=== PATIENT | female | born 1940 | race Caucasian/White ===

== ENCOUNTER → 2016-11-10 | Outpatient (CLI) | payer OTHER | LOC: FIMAGING 07:41 | PROVIDERS: ATTEND Internal Medicine | DX: Z12.31 Encounter for screening mammogram for malignant neoplasm of breast (principal) | CPT/HCPCS: G0202 ==

== ENCOUNTER → 2016-11-27 | Outpatient (CLI) | payer OTHER | LOC: FIMAGING 07:35 | PROVIDERS: ATTEND Internal Medicine Gastroenterology | DX: K70.30 Alcoholic cirrhosis of liver without ascites (principal) ==

== ENCOUNTER 2017-06-15 07:50 | Inpatient (IN) | payer OTHER ==
[~2017-06-15 07:50] MED LIST: BUPI/epINEPH/KETOROLAC IU ONE; POVIDONE-IODINE 20 ML in SODIUM CL IRRIG SOLUTION 500 ML IRR ONE; ROPIVACAINE 0.2% 80 MG, EPINEPHrine 0.2 MG, KETOROLAC TROMETHAMINE 30 MG in SYRINGE 0 ML IU ONE; TRANEXAMIC ACID 1,000 MG in NS (SYRINGE) 50 ML IV ONE; VANCOMYCIN 1 GM in NS 250 ML IV ONE; VANCOMYCIN PHARMACY TO DOSE MISC ONE
[2017-06-15] MEDS ORDERED: ceFAZolin 1 GM/5 ML SYR ONE ×2 (07:52→09:00)
[2017-06-15] MEDS ORDERED: ACETAMINOPHEN 325 MG TAB PO ONE (07:56)
[2017-06-15] MEDS ORDERED: GABAPENTIN 300 MG CAP PO ONE (07:56)
[2017-06-15] MEDS ORDERED: DEXAMETHASONE 4 MG/ML VIAL IVP ONE (07:56)
[2017-06-15] MEDS ORDERED: FAMOTIDINE 20 MG TAB PO ONE (07:56)
[2017-06-15] MEDS ORDERED: ONDANSETRON 4 MG/2 ML VIAL IVP ONE (07:56)
[2017-06-15] MEDS ORDERED: LR 1,000 ML IV ONE (07:58)
[2017-06-15] MEDS ORDERED: LIDOCAINE 1% 2 ML INJ ID PRN (07:58)
--- NOTE | 2017-06-15 08:30 | PDANEPAE ---
ANE History of Present Illness right SLIM ANE Past Medical History - Cardiovascular History Hx Hypertension: No Hx Arrhythmias: No Hx Chest Pain: No Hx Coronary Artery / Peripheral Vascular Disease: No Hx CHF / Valvular Disease: No Hx Palpitations: No - Pulmonary History Hx COPD: No Hx Asthma/Reactive Airway Disease: No Hx Recent Upper Respiratory Infection: No Hx Oxygen in Use at Home: No Hx Sleep Apnea: No Sleep Apnea Screening Result - Last Documented: Negative - Neurologic History Hx Cerebrovascular Accident: No Hx Seizures: No Hx Dementia: No - Endocrine History Hx Diabetes: No Endocrine History Comment: hypothyroid - Renal History Hx Renal Disorders: No - Liver History Hx Hepatic Disorders: Yes Hepatic History Comment: cirrhosis. Dr Barbour orders. spironolactone for improved liver function - Neurological & Psychiatric Hx Hx Neurological and Psychiatric Disorders: No - Cancer History Hx Cancer: Yes Cancer History Comment: basal cell carcinoma removed from [place] - Congenital Disorder History Hx Congenital Disorders: No - GI History Hx Gastrointestinal Disorders: Yes Gastrointestinal History Comment: constipation - Other Health History Other Health History: catarcts. thin delicate skin bruises easily. bilat upper arm lymphodema NO BP's - Chronic Pain History Chronic Pain: No - Surgical History Prior Surgeries: hernia repair with mesh ANE Review of Systems Review of Systems: - Exercise capacity METS (RN): 4 METS ANE Patient History - Allergies Allergies/Adverse Reactions: Penicillins Allergy (Severe, Verified 05/27/17 10:36) Rash tramadol Allergy (Intermediate, Verified 05/27/17 10:36) NAUSEA & VOMITING - Home Medications Home medications: home medication list seen and reviewed Home Medications: Ascorbic Acid [Vitamin C 500 mg (*)] 05/25/17 [Last Taken 06/08/17] Atorvastatin Calcium [Lipitor 20 mg (*)] 05/25/17 [Last Taken 06/13/17] Cholecalciferol Vit D3 [Vitamin D3 (*)] 05/25/17 [Last Taken 06/08/17] Herbals/Supplements -Info Only 05/25/17 [Last Taken 06/08/17] Levothyroxine [Synthroid 88 mcg (*)] 05/25/17 [Last Taken 06/13/17] [place]-3 Fatty Acids [Fish Oil 1000 mg (*)] 05/25/17 [Last Taken 06/08/17] Polyethylene Glycol 3350 [Miralax 17 gm (*)] 05/25/17 [Last Taken 06/13/17] Spironolactone [Aldactone 25 MG (*)] 05/25/17 [Last Taken 06/13/17] - Smoking Hx Smoking Status: Never smoked - Family Anes Hx Family Hx Anesthesia Complications: 2 grand fathers post anesthesia. unkown reasons ANE Labs/Vital Signs - Vital Signs Height: 160.02 cm Weight: 66.224 kg ANE Physical Exam - Airway Neck exam: FROM Mallampati Score: Class 2 Mouth exam: normal dental/mouth exam - Pulmonary Pulmonary: no respiratory distress - Cardiovascular Cardiovascular: regular rate and rhythym - ASA Status ASA Status: III ANE Anesthesia Plan Anesthesia Plan: spinal Urgent/Emergent Case: Marques ramirez completed preop but documented later for safe timely pt care
--- NOTE | 2017-06-15 08:42 | PDHPUP ---
History & Physical Update H&P update statement: This history and physical update is based on an assessment of the patient which was completed after admission or registration (within 24 hours), but prior to the surgery/procedure. H&P update: H&P reviewed & patient examined
[2017-06-15] MEDS ORDERED: LIDOCAINE 2% 5 ML SDV ONE (09:11)
[2017-06-15] MEDS ORDERED: PROPOFOL 200 MG/20 ML VIAL ONE ×3 (09:11→09:15)
[2017-06-15] MEDS ORDERED: fentaNYL 100 MCG/2 ML INJ ONE (10:06)
[2017-06-15] MEDS ORDERED: HYDROmorphONE/DILAUDID 2 MG/ML INJ ONE (10:07)
[2017-06-15] MEDS ORDERED: ONDANSETRON 4 MG/2 ML VIAL ONE (10:15)
[2017-06-15] MEDS ORDERED: DEXAMETHASONE 4 MG/ML VIAL ONE (10:15)
--- NOTE | 2017-06-15 10:25 | POSTANESTH ---
Post Anesthetic Evaluation Cardiovascular Status: Normal, Stable Respiratory Status: Normal, Stable Level of Consciousness/Mental Status: Can Participate in Eval Pain Control: Adequate, Prn Tx Ordered Nausea/Vomiting Control: Adequate, Prn Tx Ordered Complications Possibly Related to Anesthesia: None Noted
--- NOTE | 2017-06-15 11:03 | POSTOPPROG ---
Post Op Note Date of Operation: 06/15/17 Surgeon: Gary Rojas Quenching Car Operator: Melvin Anesthesiologist: Eileen Anesthesia: IV Sedation, Spinal Post-op Diagnosis: Right hip severe degenerative arthritis Procedure: Right total hip arthroplasty Inf/Abcess present in the surg proc area at time of surgery?: No EBL: 100-500
[2017-06-15] MEDS ORDERED: POLYETHYLENE GLYCOL 3350 17 GM PKT PO PRN (11:16)
[2017-06-15] MEDS ORDERED: PROMETHAZINE HCL 25 MG SUPPR PR PRN (11:16)
[2017-06-15] MEDS ORDERED: HYDROCODONE/APAP 5/325 TAB PO PRN ×2 (11:16→12:15)
[2017-06-15] MEDS ORDERED: ONDANSETRON DISINTEGRATING 4 MG TAB PO PRN (11:16)
[2017-06-15] MEDS ORDERED: CYCLOBENZAPRINE 10 MG TAB PO PRN (11:16)
[2017-06-15] MEDS ORDERED: DIPHENOXYLATE/ATROPINE LOMOTIL 1 TAB PO PRN (11:16)
[2017-06-15] MEDS ORDERED: ONDANSETRON 4 MG/2 ML VIAL IVP PRN ×2 (11:16→12:15)
[2017-06-15] MEDS ORDERED: METOCLOPRAMIDE 10 MG/2 ML VIAL IVP PRN (11:16)
[2017-06-15] MEDS ORDERED: MAGNESIUM HYDROXIDE 30 ML UDCUP PO PRN (11:16)
[2017-06-15] MEDS ORDERED: PROMETHAZINE HCL 25 MG/ML INJ IVP PRN ×2 (11:16→12:15)
[2017-06-15] MEDS ORDERED: diphenhydrAMINE 25 MG CAP PO PRN (11:16)
[2017-06-15] MEDS ORDERED: LACTULOSE 20 GM/30 ML UDCUP PO PRN (11:16)
[2017-06-15] MEDS ORDERED: TEMAZEPAM 15 MG CAP PO PRN (11:16)
[2017-06-15] MEDS ORDERED: BISACODYL 10 MG SUPP PR PRN (11:16)
[2017-06-15] MEDS ORDERED: KETOROLAC 30 MG/1 ML SDV IVP PRN (11:16)
[2017-06-15] MEDS ORDERED: NS 500 ML IV PRN (11:16)
[2017-06-15] MEDS ORDERED: LR 1,000 ML IV SCH (11:30)
--- NOTE | 2017-06-15 11:49 | GOP ---
[f rep st] OPERATIVE REPORT DATE OF OPERATION: 06/15/2017 SURGEON: Gary Rojas MD FRAME TENDER: ZONIA Natarajan CFA. ANESTHESIA: A combination of Marcaine, spinal, IV sedation, and light general anesthesia. ANESTHESIOLOGIST: Dr. Nilton Arellano. PREOPERATIVE DIAGNOSIS: Right hip severe degenerative arthritis. POSTOPERATIVE DIAGNOSIS: Right hip severe degenerative arthritis. PROCEDURE PERFORMED: 06/15/2017, right total hip arthroplasty, cobalt chrome femoral head on highly cross-linked polyethylene cup liner. FINDINGS: ESTIMATED BLOOD LOSS: 400 mL. The sponge and needle count were correct on 2 occasions. DESCRIPTION OF PROCEDURE: The patient was given 1 g of IV vancomycin preoperatively within 60 minute s of surgery. She also received IV tranexamic acid at a dose of 1000 mg. She was placed on the oper ating room table and given spinal anesthesia with Marcaine by Dr. Arellano. She was then placed supi ne and given IV sedation. A Proctor catheter was not used. She wore a SOTERO stocking on the nonoperativ e leg. Because she has lymphedema in both upper extremities, the blood pressure cuff was placed on h er left calf. I could not use an SCD on the left leg. She was rolled to the left lateral decubitus position. The position was secured with the pegboard table attachment. An axillary roll was used, a nd all pressure points were carefully padded. She has bilateral total shoulder arthroplasties. I wa s very careful in positioning her and padding her shoulders. I was careful to lock her pelvis in a r igid vertical position. Her perineum was isolated with plastic adhesive drapes. Her right hip and r ight lower extremity were prepped with ChloraPrep. They were draped free using sterile sheets, stock inette, and Ioban plastic drapes. The [employer] time-out was performed to verify the correct surgical side and site and the correct patient identity. The [place] time-out was also performed. I made a 5-inch straight oblique posterolateral hip skin incision. Subcutaneous tissues were sharply divided, and hemostasis was obtained using electrocautery. The fascia linda was identified and split along the axis of its fibers. I then curved posteriorly and proximally, and split the fascia of glu teus shawn and bluntly split the muscle fibers in line with their orientation. The Charnley self-r etaining retractor was inserted. Her sciatic nerve was located, partially exposed, and protected thr oughout the procedure. The external rotators and the posterior hip capsule were divided as separate layers at the base of the femoral neck, tagged, and reflected posteriorly. A smooth 8-inch Steinmann pin was inserted vertically into the ilium superior to the acetabulum. An 1/8-inch drill bit was in serted vertically into the greater trochanter and parallel to the first pin. The distance between th e two was measured for leg length reference. Her femoral head was dislocated posteriorly. Severe de generative changes were present on the femoral head. The femoral neck was osteotomized at the approp riate level and inclination. I was careful to preserve all the posterior capsule and most of the anterior capsule. The remnant of her badly damaged labrum was excised. I prepared the femur first. This allowed me to data sciences director the amount of natural femoral neck anteversion. This, in turn, allowed me to later determine the correct amount of cup anteversion. She had approx imately 10 or 12 degrees of natural femoral neck anteversion. The canal was opened laterally with a box chisel. I reamed and broached sequentially up to size 3. I used a [place] Accolade II stem and size 3 broach with high offset as a trial stem. I was careful to lateralize adequately. Appropriate retractors were inserted to expose the acetabulum. The acetabulum was reamed sequentiall y up to 51 mm. I selected a 52 mm Tanesha Tritanium cluster hole hemispherical shell. This was candice ed securely into place in the proper degree of inclination and anteversion. I used the transverse ac etabular ligament and other acetabular bony landmarks to help me properly orient the cup. I inserted 30 mm and a 25 mm supplemental screws through the shell for supplemental fixation. I also inserted a screw-in metal dome hole plug. Small anterior osteophytes were removed with an osteotome and ronge ur. I performed a series of trial reductions to determine length and stability. I concluded that the siz e 3 stem with a +4 mm neck with high offset and a 32 mm head with a flush liner gave me the proper co mbination of appropriate length and good anterior and posterior stability. The 0-degree [place] X3 highly cross-linked polyethylene liner was inserted and tapped securely into place. The [place] Accolade II stem in size 3 with high offset was inserted press-fit and was very t ight. I did 1 final trial reduction and confirmed that the +4 mm neck length with a 32 mm head was t he proper combination. The [place] cobalt chrome head with an outside diameter of 32 mm and neck faiza gth of +4 mm was tapped securely onto the clean trunnion. The acetabulum was irrigated, cleaned, and the hip was reduced 1 final time. She had excellent anterior and posterior stability and appropriat e lengthening. She was a couple of millimeters short preoperatively, and I was slightly lengthening her. 40 mL of the joint anesthetic cocktail was injected into the capsule, the deep musculature, and the s ubcutaneous tissues along the skin edges. The joint was thoroughly irrigated 1 final time with a dil pala Betadine solution. Her sciatic nerve was reinspected and looked unharmed. The external rotators and the posterior hip capsule were repaired in separate layers with #2 FiberWir e sutures through drill holes in the greater trochanter. The fascia linda was closed first with two # 2 ixcelo-ev-roilh FiberWire sutures, followed by a running #2 barbed Ethicon Stratafix PDO suture. T he subcutaneous tissues were closed with a running 0 barbed Ethicon Stratafix Monoderm suture. The s kin was closed with a running 3-0 barbed Ethicon Stratafix Monoderm subcuticular suture. The skin ed ges were reapproximated and sealed with Dermabond glue. The wound was covered with a large piece of waterproof Mepilex surgical dressing. The Mepilex sacral dressing was also applied. A long-leg SOTERO stocking and SCD were applied to her right lower extremity. An abduction pillow was p laced between her knees. She was awakened from anesthesia and rolled to the supine position on her h ostal gursouth sutton. She was taken to PACU in satisfactory condition. COMPLICATIONS: There were no recognized intraoperative complications. IMPLANTS: I used a Tanesha Tritanium cluster hole acetabular shell with an outside diameter of 52 mm . The liner was a [place] X3 0-degree highly cross-linked liner with an inside diameter of 32 mm. T he femoral component was a press-fit [place] high offset Accolade II stem in size 3. The femoral hea d was a Tanesha cobalt chrome head with a +4 mm neck length and a 32 mm outside diameter. Dao Warner and Nelson Mario acted as surgical assistants. Their assistance was a medical necess ity for safe completion of the procedure. /[id number]/MODL
[2017-06-15] MEDS ORDERED: LR 500 ML IV PRN (12:15)
[2017-06-15] MEDS ORDERED: fentaNYL 100 MCG/2 ML INJ IVP PRN (12:15)
[2017-06-15] MEDS ORDERED: NALOXONE HCL 0.4 MG/ML INJ IVP PRN (12:15)
[2017-06-15] MEDS ORDERED: HYDROmorphONE/DILAUDID 2 MG/ML INJ IVP PRN (12:15)
[2017-06-15] MEDS ORDERED: oxyCODONE IR 5 MG TAB PO PRN (12:15)
[2017-06-15] MEDS ORDERED: ACETAMINOPHEN 500 MG TAB PO PRN (12:15)
--- NOTE | 2017-06-15 12:25 | PDMN ---
Medical Necessity Medical necessity: IP surgery per [facility] cpt 62961 R SLIM
[2017-06-15] MEDS: ACETAMINOPHEN 325 MG TAB PO SCH ×3 (13:37→23:15)
[2017-06-15] MEDS ORDERED: VANCOMYCIN 1 GM in NS 250 ML IV SCH (20:30)
[2017-06-15] MEDS: SENNOSIDES/DOCUSATE SODIUM TAB PO SCH (20:44)
[2017-06-15] MEDS: FAMOTIDINE 20 MG TAB PO SCH (20:44)
[2017-06-15] MEDS: ASPIRIN 325 MG TAB PO SCH (20:50)
[2017-06-16] MEDS: ACETAMINOPHEN 325 MG TAB PO SCH (06:10)
[2017-06-16] MEDS: FAMOTIDINE 20 MG TAB PO SCH (08:15)
[2017-06-16] MEDS: ASPIRIN 325 MG TAB PO SCH (08:15)
[2017-06-16] MEDS: SENNOSIDES/DOCUSATE SODIUM TAB PO SCH (08:15)
[2017-06-16] MEDS ORDERED: FERROUS SULFATE 140 MG TAB.ER PO SCH (09:00)
--- NOTE | 2017-06-16 09:46 | SOAPPROG ---
SOAP Progress Note Assessment/Plan: Assessment: Afebrile. Awake and alert. Little pain. H/H is good. Films look good. Sciatic nerve intact. Has walked in [place] and done stairs. Plan:DC today. 06/16/17 09:45 Objective: Vital Signs Temp Pulse Resp BP Pulse Ox 36.8 C 70 16 169/86 H 92 06/16/17 08:34 06/16/17 08:34 06/16/17 08:34 06/16/17 08:34 06/16/17 08:34 Laboratory Results 06/16/17 04:18 06/15/17 06/16/17 06/17/17 05:59 05:59 05:59 Intake Total 1375 Output Total 800 Balance 575 ICD10 Worksheet Patient Problems: Problems Problem Status Onset Osteoarthritis of right hip Acute
--- NOTE | 2017-06-16 10:03 | GDS ---
[f rep st] DISCHARGE SUMMARY ADMISSION DIAGNOSIS: Right hip degenerative arthritis. DISCHARGE DIAGNOSIS: Right hip degenerative arthritis. OPERATION PERFORMED: 06/15/2017, a right total hip arthroplasty. POSTOPERATIVE COMPLICATIONS: None. CONDITION ON DISCHARGE: Improved. DESCRIPTION OF HOSPITAL COURSE: The patient was admitted to the hospital the morning of surgery. He r admission CBC, electrolytes, BUN, and creatinine were all normal. The same day, under a combinatio n of Marcaine, spinal, and IV sedation, she underwent a right total hip arthroplasty. Postoperativel y, she was treated with multimodal DVT prophylaxis, including aspirin. On the first postoperative da y, her hemoglobin and hematocrit were 10.9 and 31.9. She did not require any transfused blood. She was seen by Physical Therapy and made good progress with ambulation and stairs. By the time of disch arge, she was afebrile, independent walking with a walker and her dressing was dry. DISPOSITION: Patient is discharged to her home. She may progress to full weightbearing on the right as tolerated. Abduction pillow in bed for 3 weeks. SOTERO stockings for 7 days. Continue aspirin 325 mg p.o. daily for 21 days. She has prescriptions for tramadol and oxycodone for pain control. She has a history of elevated serum iron so she does not need to take supplemental iron at home. I will see her back in the office on 07/05/2017. If any problems, she is to call me at the office. /[id number]/MODL
--- NOTE | 2017-06-16 11:32 | ASMTCMCOM ---
CM Note CM Note Notes: Pt had R total hip. PT rec home/outpatient. Pt medically stable for d/c with family support. No CM d/c needs identified. Date Signed: 06/16/2017 11:32 AM Electronically Signed By:ENEDELIA Coon
[2017-06-16 11:51] VITALS: BP 143/80
[2017-06-16] MEDS ORDERED: SPIRONOLACTONE 25 MG TAB PO SCH (21:00)
[2017-06-16] MEDS ORDERED: SPIRONOLACTONE 100 MG TAB PO SCH (21:00)
[2017-06-17] MEDS ORDERED: LEVOTHYROXINE 88 MCG TAB PO SCH (06:00)
[2017-06-17] MEDS ORDERED: ATORVASTATIN CALCIUM 20 MG TAB PO SCH (09:00)
== END 2017-06-16 13:11 | disposition home or self-care (01) | DRG 470 ==
LOC: F3N 07:50
PROVIDERS: ADMIT Orthopaedic Surgery; ATTEND Orthopaedic Surgery
PROC: 0SR902Z Replacement of Right Hip Joint with Metal on Polyethylene Synthetic Substitute, Open Approach (ICD-10-PCS; principal; 2017-06-15 09:30)
DX: M16.11 Unilateral primary osteoarthritis, right hip (principal); Z96.642 Presence of left artificial hip joint; Z96.611 Presence of right artificial shoulder joint; Z96.652 Presence of left artificial knee joint; E03.9 Hypothyroidism, unspecified; E78.00 Pure hypercholesterolemia, unspecified
CPT/HCPCS: 97110-GP; 97116-GP; 97161-GP; 97166-GO; 97530-GP; 97535-GO; C1713; G8978-GP-CJ; G8979-GP-CI; G8987-GO-CJ; G8988-GO-CI; J0171; J1100; J1170; J1885; J2405; J2704; J3010; J3370

== ENCOUNTER → 2017-11-23 | Outpatient (CLI) | payer OTHER | LOC: FIMAGING 10:21 | PROVIDERS: ATTEND Internal Medicine Gastroenterology | DX: K70.30 Alcoholic cirrhosis of liver without ascites (principal) ==